=== PATIENT | male | born 1965 | race Caucasian/White ===

== ENCOUNTER 2016-11-17 17:19 | Emergency (ER) | payer OTHER ==
[2016-11-17 17:24] VITALS: BP 175/99
[2016-11-17] MEDS ORDERED: TETRACAINE HCL 0.5% OPH SOLN 2 ML ONE (17:51)
[2016-11-17] MEDS ORDERED: ONDANSETRON HCL INJ/PF 4 MG/2 ML SDV IV ONE (17:53)
[2016-11-17] MEDS ORDERED: MORPHINE SULFATE 10 MG/ML INJ IV ONE (17:53)
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
[2016-11-17] MEDS ORDERED: OXYCODONE-ACETAMINOPHEN 5-325 MG TABLET PO ONE (18:19)
== END 2016-11-17 18:45 | disposition other institution (70) ==
LOC: ER 17:19
DX: H21.02 Hyphema, left eye (principal); S05.02XA Injury of conjunctiva and corneal abrasion without foreign body, left eye, initial encounter; W22.8XXA Striking against or struck by other objects, initial encounter; Y99.0 Civilian activity done for income or pay; F17.200 Nicotine dependence, unspecified, uncomplicated
CPT/HCPCS: 99283

== ENCOUNTER 2017-05-16 01:43 | Emergency (ER) | payer SELFPAY ==
[2017-05-16] MEDS ORDERED: LIDOCAINE 2% VISCOUS SOLN 20 ML UDCUP PO ONE (02:19)
[2017-05-16] MEDS ORDERED: DIPH/PERTUSS(ACELL)/TETANUS VAC/PF 0.5 ML SYR (>=10YO) IM ONE (02:19)
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
[2017-05-16] MEDS ORDERED: HYDROMORPHONE HCL INJ/PF 2 MG/ML AMPULE IV ONE (03:22)
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
[2017-05-16] MEDS ORDERED: IBUPROFEN 800 MG TABLET PO ONE (04:25)
[2017-05-16] MEDS ORDERED: ACETAMINOPHEN 325 MG TABLET PO ONE (04:25)
[2017-05-16 04:36] VITALS: BP 148/103
== END 2017-05-16 04:36 ==
LOC: ER 01:43
PROC: 0HQ0XZZ Repair Scalp Skin, External Approach (ICD-10-PCS; principal; 2017-05-16)
DX: S01.01XA Laceration without foreign body of scalp, initial encounter (principal); S00.03XA Contusion of scalp, initial encounter; Y04.0XXA Assault by unarmed brawl or fight, initial encounter; F17.200 Nicotine dependence, unspecified, uncomplicated; Z23 Encounter for immunization; I10 Essential (primary) hypertension
CPT/HCPCS: 99284; 90471; 70450; 72125; 90715; 12002; J3490